=== PATIENT | male | born 1995 | race Caucasian/White ===

== ENCOUNTER 2016-09-17 10:06 | Emergency (ER) | payer OTHER, SELFPAY ==
[2016-09-17] MEDS ORDERED: Ibuprofen 800 MG TAB ONE (10:42)
--- NOTE | 2016-09-17 12:14 | RAD ---
THREE VIEWS OF THE LEFT HUMERUS INDICATIONS: Injury. COMPARISON: None. FINDINGS: No acute fracture or subluxation is evident. The visualized left lung is clear. IMPRESSION: No acute osseous abnormality. POS: [facility]
== END 2016-09-17 11:45 | disposition home or self-care (01) ==
LOC: MADERS 10:06
DX: S40.022A Contusion of left upper arm, initial encounter (principal); S64.02XA Injury of ulnar nerve at wrist and hand level of left arm, initial encounter; V57.9XXA Unspecified occupant of pick-up truck or van injured in collision with fixed or stationary object in traffic accident, initial encounter; F31.9 Bipolar disorder, unspecified

== ENCOUNTER 2017-04-06 15:23 | Emergency (ER) | payer OTHER, SELFPAY ==
[~2017-04-06 15:23] MED LIST: Iopamidol 370 76% 100 ML VIAL ONE; Sodium Chloride 0.9% 1,000 ML BAG ONE
[2017-04-06] MEDS ORDERED: Ketorolac Tromethamine 30 MG/ML VIAL ONE (15:56)
[2017-04-06] MEDS ORDERED: Ondansetron HCl/PF 4 MG/2 ML Vial ONE (15:56)
[2017-04-06 16:01] LABS: Bilirubin Negative (Negative); Blood, Urine Negative (Negative); Clarity Clear (Clear); Glucose, Urine (Dipstick) Negative (Negative); Leukocyte Negative (Negative); Nitrite Negative (Negative); Protein, Urine (Dipstick) Negative (Neg-Trace); Specific Gravity, Urine 1.025 (1.005-1.030); Urobilinogen 0.2 mg/dL (0.2-1.0); pH, Urine 5.5 (5.0-9.0)
[2017-04-06 16:02] LABS: Bacteria/HPF Rare-Few HPF (None Seen); RBC/HPF None Seen HPF (0-3); Squamous Epithelial 0-3 HPF (0-3); WBC/HPF 0-3 HPF (0-3)
--- NOTE | 2017-04-06 16:16 | RAD ---
PORTABLE CHEST ONE VIEW: 04/06/2017 at 3:54 p.m. HISTORY: Gastric and abdominal pain. FINDINGS: The heart size is normal. The lungs are expanded without focal areas of consolidation, pneumothorax , or pleural effusions. IMPRESSION: No radiographic evidence of acute cardiopulmonary process. POS: [facility]
[2017-04-06 16:45] LABS: ALT (SGPT) 19 U/L (8-55); AST (SGOT) 13 U/L (5-34); Albumin 4.2 g/dL (3.5-5.0); Alkaline Phosphatase 55 U/L (Less than 750); Anion Gap 14 mmol/L (10-20); BUN (Urea Nitrogen) 13 mg/dL (8.9-20.6); Bilirubin, Total 1.4 mg/dL (0.2-1.2); CK (CPK) 89 U/L (30-200); Calc. Creatinine Clearance 0 mL/min (70-130); Calcium 9.4 mg/dL (7.8-10.44); Carbon Dioxide 24 mmol/L (22-29); Chloride 107 mmol/L (98-107); Estimated GFR-MDRD 84; Globulin 2.7 g/dL (2.4-3.5); Glucose 108 mg/dL (70-105); Lipase 11 U/L (8-78); Potassium 3.7 mmol/L (3.5-5.1); Protein, Total 6.9 g/dL (6.0-8.3); Sodium 141 mmol/L (136-145)
[2017-04-06 16:46] LABS: CKMB 0.7 ng/mL (0-6.6); Troponin I 0.015 ng/mL (< 0.028)
[2017-04-06 16:50] LABS: Eosinophils 18 % (0-10); Hemoglobin 14.1 g/dL (14.0-18.0); Lymphocytes 20 % (28-48); MDiff Complete? YES; Mean Corpuscular HGB CONC 32.6 g/dL (32.0-36.0); Mean Corpuscular Hemoglobin 27.9 pg (25.0-35.0); Mean Corpuscular Volume 85.7 fl (77.0-87.0); Mean Platelet Volume 10.9 fL (7.4-10.4); Monocytes 3 % (0-4); Neutrophil 50 % (31-61); PLT Morphology Comment Appears Adequate; Platelet Count 211 thou/uL (130-400); RBC Distribution Width 11.9 % (11.5-14.5); RBC Morphology Normal; Reactive Lymphocytes 9 % (0-10); Red Blood Cell (RBC) Count 5.04 mill/uL (4.00-5.20); White Blood Cell (WBC) Count 9.4 thou/uL (4.8-10.8)
[2017-04-06] MEDS ORDERED: metroNIDAZOLE 250 MG TAB ONE (19:17)
[2017-04-06] MEDS ORDERED: Ciprofloxacin 500 MG TAB ONE (19:17)
[2017-04-06] MEDS ORDERED: HYDROcodone/Acetaminophen 10/325 mg Tablet ONE (19:17)
[2017-04-06] MEDS ORDERED: predniSONE 20 MG TAB ONE (19:18)
--- NOTE | 2017-04-06 20:12 | CT ---
CT OF THE ABDOMEN AND PELVIS WITH CONTRAST: Comparison: None. History: Right lower quadrant abdominal pain and epigastric pain for two days. Technique: Multiple contiguous axial images were obtained in a CT of the abdomen and pelvis with con trast. PO contrast was administered. Coronal reformats were performed. FINDINGS: There is moderate thickening of the wall of the terminal ileum with surrounding stranding changes. T he appendix is normal without inflammatory change. The more proximal small bowel is normal in calibe r. The colon is normal in appearance. No free air is seen in the abdomen or pelvis. A trace amount o f free fluid is seen in the pelvis. The liver, gallbladder, kidneys, adrenal glands, spleen and pancreas are unremarkable. A small splen ial is seen adjacent to the spleen. No abdominal or pelvic lymphadenopathy are seen. IMPRESSION: 1. Thickening of the wall of the terminal ileum is seen. Terminal ileitis could be caused by either an infectious ileitis or Crohn's disease. 2. No evidence of acute appendicitis. POS: [facility]
== END 2017-04-06 19:38 | disposition home or self-care (01) ==
LOC: MADERS 15:23
DX: K52.9 Noninfective gastroenteritis and colitis, unspecified (principal); F31.9 Bipolar disorder, unspecified
CPT/HCPCS: 71010; 74177; 80053; 81001; 82150; 82553; 83690; 84484; 85025; 85652; 86140; 87086; 96361; 96374; 96375; J1885; J2405; J7050; J7506

== ENCOUNTER 2018-01-07 23:17 | Emergency (ER) | payer OTHER ==
[~2018-01-07 23:17] MED LIST changes: -Iopamidol 370 76% 100 ML VIAL ONE; -Sodium Chloride 0.9% 1,000 ML BAG ONE; +Sodium Chloride Irrig Solution 250 ML BOT ONE
--- NOTE | 2018-01-07 23:55 | RAD ---
RADIOGRAPH RIGHT HAND 3 VIEWS: 01/07/18 HISTORY: 22-year-old male status post blunt traumatic injury to the hand. FINDINGS: There is no fracture, dislocation, or any osseous abnormality. There is increased soft tissue attenua tion between the 4th and 5th MCP joints. IMPRESSION: 1. Acute, traumatic, soft tissue contusion between the 4th and 5th metacarpophalangeal joints. 2. No fracture. POS: [facility]
[2018-01-08] MEDS ORDERED: Naproxen 500 MG TAB ONE (00:01)
== END 2018-01-08 00:11 | disposition home or self-care (01) ==
LOC: MADERS 23:17
DX: S60.222A Contusion of left hand, initial encounter (principal); S60.221A Contusion of right hand, initial encounter; F31.9 Bipolar disorder, unspecified; W50.0XXA Accidental hit or strike by another person, initial encounter; Y93.75 Activity, martial arts

== ENCOUNTER 2018-01-19 10:26 | Emergency (ER) | payer OTHER ==
[2018-01-19] MEDS ORDERED: HYDROcodone/Acetaminophen 10/325 mg Tablet ONE (11:03)
== END 2018-01-19 11:10 | disposition home or self-care (01) ==
LOC: MADERS 10:26
DX: M54.5 Low back pain (principal); J45.909 Unspecified asthma, uncomplicated; F31.9 Bipolar disorder, unspecified
CPT/HCPCS: 99283

== ENCOUNTER 2018-03-09 19:23 | Emergency (ER) | payer OTHER ==
[2018-03-09] MEDS ORDERED: Ondansetron ODT 4 MG TAB ONE (20:07)
[2018-03-09] MEDS ORDERED: Loperamide HCl 2 MG CAP ONE (20:07)
== END 2018-03-09 20:18 | disposition home or self-care (01) ==
LOC: MADERS 19:23
DX: K52.9 Noninfective gastroenteritis and colitis, unspecified (principal); J45.909 Unspecified asthma, uncomplicated; F31.9 Bipolar disorder, unspecified
CPT/HCPCS: 99283; Q0162

== ENCOUNTER 2018-05-18 10:04 | Emergency (ER) | payer OTHER, SELFPAY ==
[2018-05-18] MEDS ORDERED: Dexamethasone 10 MG/ML VIAL ONE (10:21)
== END 2018-05-18 10:25 | disposition home or self-care (01) ==
LOC: MADERS 10:04
DX: J02.9 Acute pharyngitis, unspecified (principal)
CPT/HCPCS: 96372; J1100

== ENCOUNTER 2018-11-08 11:16 | Emergency (ER) | payer OTHER | END 2018-11-08 11:50 | disposition home or self-care (01) | LOC: MADERS 11:16 | DX: R07.81 Pleurodynia (principal) | CPT/HCPCS: 99283 ==

== ENCOUNTER 2020-03-28 11:23 | Emergency (ER) | payer OTHER, SELFPAY ==
[~2020-03-28 11:23] MED LIST changes: +Iopamidol 370 76% 125 ML VIAL FS ONE; -Sodium Chloride Irrig Solution 250 ML BOT ONE
[2020-03-28 12:53] LABS: #Basophils 0.1 thou/uL (0.0-0.2); #Eosinphils 0.2 thou/uL (0.0-0.7); #Lymphocytes 2.6 thou/uL (1.20-3.40); #Monocytes 1.2 thou/uL (0.11-0.59); #Neutrophils 9.6 thou/uL (1.40-6.50); %Eosinophils 1.2 % (0.0-10.0); %Monocytes 8.8 % (0.0-10.0); %Neutrophils 70.1 % (42.0-75.0); Hemoglobin 14.1 g/dL (14.0-18.0); Mean Corpuscular HGB CONC 31.8 g/dL (32.0-36.0); Mean Corpuscular Volume 84.9 fL (78.0-98.0); Platelet Count 302 thou/uL (130-400); Red Blood Cell (RBC) Count 5.21 mill/uL (4.70-6.10); White Blood Cell (WBC) Count 13.7 thou/uL (4.8-10.8)
--- NOTE | 2020-03-28 12:53 | RAD ---
XR Chest Pa Lat STANDARD HISTORY: Chest pain COMPARISON: 04/06/2017 FINDINGS: The heart size is normal. The lungs are well expanded without focal areas of consolidation, pneumothorax or pleural effusions. IMPRESSION: No radiographic evidence of acute cardiopulmonary process.
--- NOTE | 2020-03-28 12:53 | RAD ---
XR Shoulder Lt 3 View STANDARD HISTORY: Left shoulder pain FINDINGS: No fracture or dislocation is identified.
[2020-03-28] MEDS ORDERED: Sodium Chloride 0.9% 1,000 ML ONE ×2 (12:55→13:49)
[2020-03-28] MEDS ORDERED: Ketorolac Tromethamine 30 MG/ML VIAL ONE (12:55)
[2020-03-28 12:59] LABS: ALT (SGPT) 46 U/L (8-55); AST (SGOT) 20 U/L (5-34); Albumin 4.3 g/dL (3.5-5.0); Alkaline Phosphatase 68 U/L (40-110); Anion Gap 15 mmol/L (10-20); BUN (Urea Nitrogen) 9 mg/dL (8.9-20.6); Bilirubin, Total 2.6 mg/dL (0.2-1.2); CK (CPK) 55 U/L (30-200); Calc. Creatinine Clearance 0 mL/min (70-130); Calcium 9.3 mg/dL (7.8-10.44); Carbon Dioxide 22 mmol/L (22-29); Chloride 105 mmol/L (98-107); Estimated GFR-MDRD Greater than 90; Glucose 96 mg/dL (70-105); Protein, Total 7.3 g/dL (6.0-8.3); Sodium 138 mmol/L (136-145)
--- NOTE | 2020-03-28 13:53 | CT ---
CT PULMONARY ANGIOGRAM WITH IV CONTRAST AND 3-D POSTPROCESSING: HISTORY:Left upper chest pain, elevated d-dimer FINDINGS: There is good contrast opacification of the main pulmonary arteries without filling defects to sugges t central pulmonary embolism. The peripheral branches are not satisfactorily evaluated due to inadequate opacification. Peripheral pulmonary embolism cannot be excluded on this exam. The thoracic aorta is well opacified without aneurysm or dissection. No pleural or pericardial effusions are seen. No pneumothoraces, lobar consolidation or lung nodules are noted. There are atelectatic changes in th e left lung base. No acute osseous abnormality is seen. Upper abdominal tomograms are unremarkable.. IMPRESSION: No CT evidence of central pulmonary embolism.
== END 2020-03-28 14:45 | disposition home or self-care (01) ==
LOC: MADERS 11:23
DX: R07.89 Other chest pain (principal); M25.512 Pain in left shoulder; J45.909 Unspecified asthma, uncomplicated
CPT/HCPCS: 71046; 71275; 80053; 82550; 84484; 85025; 85379; 93005; 94760; 96374; J1885; J7050; Q9967

== ENCOUNTER 2021-03-21 02:12 | Emergency (ER) | payer SELFPAY ==
[2021-03-21] MEDS ORDERED: Acetaminophen 500 MG TAB ONE (02:34)
[2021-03-21] MEDS ORDERED: Ibuprofen 600 MG TAB ONE (02:34)
[2021-03-21 17:24] LABS: SARS-CoV-2 PCR by NAA DETECTED (NotDetected)
== END 2021-03-21 03:19 | disposition home or self-care (01) ==
LOC: MADERS 02:12
DX: U07.1 COVID-19 (principal); J45.909 Unspecified asthma, uncomplicated
CPT/HCPCS: 99284; U0003; U0005

== ENCOUNTER 2021-06-26 12:00 | Emergency (ER) | payer SELFPAY | END 2021-06-26 13:15 | disposition home or self-care (01) | LOC: MADERS 12:00 | DX: S39.012A Strain of muscle, fascia and tendon of lower back, initial encounter (principal); X50.9XXA Other and unspecified overexertion or strenuous movements or postures, initial encounter | CPT/HCPCS: 72072; 72100 ==

== ENCOUNTER 2022-08-07 07:25 | Emergency (ER) | payer SELFPAY ==
[2022-08-07] MEDS ORDERED: Dexamethasone 10 MG/ML VIAL ONE (07:57)
[2022-08-07] MEDS ORDERED: Orphenadrine Citrate 60 MG/2 ML VIAL ONE (07:57)
[2022-08-07] MEDS ORDERED: Ketorolac Tromethamine 60 MG/2 ML VIAL ONE (07:57)
[2022-08-07 08:01] LABS: Bilirubin Negative (Negative); Blood, Urine Negative (Negative); Clarity Clear (Clear); Glucose, Urine (Dipstick) Negative (Negative); Ketone, Urine Negative (Negative); Leukocyte Negative (Negative); Nitrite Negative (Negative); Protein, Urine (Dipstick) Negative (Neg-Trace); Urobilinogen 0.2 mg/dL (Less than 2); pH, Urine 5.5 (5.0-9.0)
[2022-08-07 08:02] LABS: Specific Gravity, Urine 1.025 (1.002-1.036)
== END 2022-08-07 09:05 | disposition home or self-care (01) ==
LOC: MADERS 07:25
DX: M51.36 Other intervertebral disc degeneration, lumbar region (principal)
CPT/HCPCS: 72131; 81003; 96372; J1100; J1885; J2360

== ENCOUNTER 2024-01-14 00:57 | Emergency (ER) | payer SELFPAY ==
[2024-01-14] MEDS ORDERED: Ketorolac Tromethamine 30 MG (1 mL) VIAL ONE (01:37)
[2024-01-14] MEDS ORDERED: predniSONE 20 MG TAB ONE (01:37)
== END 2024-01-14 01:55 | disposition home or self-care (01) ==
LOC: MADERS 00:57
DX: S39.012A Strain of muscle, fascia and tendon of lower back, initial encounter (principal); R68.84 Jaw pain; M62.838 Other muscle spasm; X50.9XXA Other and unspecified overexertion or strenuous movements or postures, initial encounter
CPT/HCPCS: 96372; 99283; J1885; J7512

== ENCOUNTER 2024-03-23 16:21 | Emergency (ER) | payer OTHER, SELFPAY ==
[2024-03-23 16:57] LABS: Bilirubin Negative (Negative); Blood, Urine Negative (Negative); Clarity Clear (Clear); Glucose, Urine (Dipstick) Negative (Negative); Ketone, Urine Negative (Negative); Leukocyte Negative (Negative); Nitrite Negative (Negative); Protein, Urine (Dipstick) 30 mg/dL (Neg-Trace); Urobilinogen 0.2 mg/dL (Less than 2); pH, Urine 5.5 (5.0-9.0)
[2024-03-23 16:58] LABS: Specific Gravity, Urine 1.025 (1.002-1.036)
[2024-03-23 17:07] LABS: Bacteria/HPF Rare-Few HPF (None Seen); CAUTI Indications for Culture Pelvic or flank pain; RBC/HPF None Seen HPF (0-3); Squamous Epithelial 0-3 HPF (0-3)
[2024-03-23 17:08] LABS: Mucous/LPF Few LPF (<2+); Sperm/HPF Rare HPF (None Seen); Urine Culture Reflex No No
[2024-03-24 11:56] LABS: Chlam.trachomatis by PCR,Urine Not Detected (NotDetected); GC N.gonorrhoeae PCR,UrineVOID Not Detected (NotDetected)
[2024-03-24 14:21] LABS: Syphilis Antibody Nonreactive (Nonreactive); Syphilis Antibody Index 0.08 S/CO (<1.00 Non-Reactive)
[2024-03-28 04:07] LABS: HSV 1 - DNA Negative (Negative); HSV 2 - DNA Positive (Negative)
== END 2024-03-23 17:37 | disposition home or self-care (01) ==
LOC: MADERS 16:21
DX: A60.00 Herpesviral infection of urogenital system, unspecified (principal)
CPT/HCPCS: 36415; 81001; 86780; 87491; 87529; 87591; 99283